=== PATIENT | female | born 1950 | race Caucasian/White ===

== ENCOUNTER → 2018-10-18 | Outpatient (CLI) | payer MEDICARE, BC ==
[~2018-10-18] MED LIST: Aldactone25 MG PO; CALCIUM 500 +1 EAC2; CLARITIN10 MG; DIALYVITE 800-1 EAC1; EZET10 PO; Hair, Skin & N1 EACH; NASACORT10.8 ML; OXYACE7.5T PO; PRAV20; PROBIOTIC1 EAC1; QVAR REDIHALE10.6 G1; ZOLP5 PO
[2018-10-20 15:07] LABS: HPV 16 Negative (Negative); HPV 18 Negative (Negative); HPV OTHER HR TYPES Negative (Negative)
== END | disposition home or self-care (01) ==
LOC: LAB SHORT 15:27 → LAB 15:27
PROVIDERS: Advanced Practice Midwife
DX: Z01.419 Encounter for gynecological examination (general) (routine) without abnormal findings (principal); Z91.89 Other specified personal risk factors, not elsewhere classified
CPT/HCPCS: 87624; G0123

== ENCOUNTER → 2019-02-17 | Outpatient (CLI) | payer MEDICARE, BC | END | disposition home or self-care (01) | LOC: PLD 14:15 → LAB SHORT 14:15 | DX: D21.12 Benign neoplasm of connective and other soft tissue of left upper limb, including shoulder (principal) | CPT/HCPCS: 88305 ==

== ENCOUNTER → 2020-05-12 | Outpatient (CLI) | payer MEDICARE, BC | END | disposition home or self-care (01) | LOC: LAB SHORT 09:00 → LAB 09:00 | DX: N39.0 Urinary tract infection, site not specified (principal) | CPT/HCPCS: 87077; 87086; 87186 ==

== ENCOUNTER → 2021-02-21 | Outpatient (CLI) | payer MEDICARE, BC ==
[2021-02-24 13:10] LABS: HPV 16 Negative (Negative); HPV 18 Negative (Negative); HPV OTHER HR TYPES Negative (Negative)
== END ==
LOC: LAB 10:22 → LAB SHORT 10:22
PROVIDERS: Advanced Practice Midwife
DX: Z01.419 Encounter for gynecological examination (general) (routine) without abnormal findings (principal)
CPT/HCPCS: 87624; G0123

== ENCOUNTER → 2023-01-27 | Outpatient (CLI) | payer MEDICARE, BC | END | disposition home or self-care (01) | LOC: LAB 09:53 → LAB SHORT 09:53 | DX: R30.0 Dysuria (principal) | CPT/HCPCS: 87077; 87086; 87186 ==

== ENCOUNTER → 2023-08-20 | Outpatient (CLI) | payer MEDICARE, BC | LOC: LAB 12:16 → LAB SHORT 12:16 | DX: R30.0 Dysuria (principal); R31.9 Hematuria, unspecified; R35.0 Frequency of micturition | CPT/HCPCS: 87086; 87186 ==

== ENCOUNTER → 2023-08-26 | Outpatient (CLI) | payer MEDICARE, BC | LOC: LAB SHORT 14:26 → LAB 14:26 | DX: R30.0 Dysuria (principal) | CPT/HCPCS: 87086 ==

== ENCOUNTER → 2024-05-18 | Outpatient (CLI) | payer MEDICARE, BC | LOC: LAB 09:03 → LAB SHORT 09:03 | DX: R30.0 Dysuria (principal) | CPT/HCPCS: 87077; 87086; 87186 ==

== ENCOUNTER → 2024-09-25 | Outpatient (CLI) | payer MEDICARE, BC | LOC: LAB 11:58 → LAB SHORT 11:58 | DX: R30.0 Dysuria (principal) | CPT/HCPCS: 87077; 87086; 87186 ==

== ENCOUNTER 2025-03-09 08:16 | Day surgery (SDC) | payer MEDICARE, BC ==
[~2025-03-09] VITALS: Ht 172.7 cm; Wt 99.0 kg
[2025-03-09] MEDS ORDERED: FAMO20 (08:37)
[2025-03-09] MEDS ORDERED: OMEP20ER (08:37)
[2025-03-09 11:35] VITALS: BP 138/78
== END 2025-03-09 11:20 | disposition home or self-care (01) ==
LOC: ORSCSDS 08:16
PROVIDERS: Surgery
PROC: 0DBP8ZX Excision of Rectum, Via Natural or Artificial Opening Endoscopic, Diagnostic (ICD-10-PCS; principal; 2025-03-09 09:45)
DX: Z12.11 Encounter for screening for malignant neoplasm of colon (principal); Z86.0101 Personal history of adenomatous and serrated colon polyps; K62.1 Rectal polyp; E78.00 Pure hypercholesterolemia, unspecified; I10 Essential (primary) hypertension; Z79.899 Other long term (current) drug therapy
CPT/HCPCS: 88305; J2704; J7120